=== PATIENT | male | born 1990 | race Caucasian/White ===

== ENCOUNTER 2018-01-27 11:11 | Inpatient (IN) | payer MEDICAID, OTHER ==
[2018-01-27 11:38] LABS: BEDSIDE GLUCOSE 123 MG/DL (70-105)
[2018-01-27 11:47] LABS: BASO % 0.1 % (0.0-1.0); HEMATOCRIT 43.1 % (42.0-52.0); IMMATURE GRANULOCYTE % 0.6 % (0-3.0); LYMPH # 0.4 10^3/uL (1.5-6.5); LYMPH % 2.1 % (24.0-44.0); MEAN CORPUSCULAR HEMOGLOBIN 30.2 pg (27.0-33.0); MEAN CORPUSCULAR HGB CONC 34.8 g/dl (32.0-36.5); MEAN CORPUSCULAR VOLUME 86.9 fl (80.0-96.0); MONO # 0.9 10^3/uL (0.0-0.8); MONO % 4.4 % (0.0-5.0); NEUTROPHILS % 92.8 % (36.0-66.0); PLATELET COUNT, AUTOMATED 283 10^3/uL (150-450); RED BLOOD COUNT 4.96 10^6/uL (4.30-6.10); RED CELL DISTRIBUTION WIDTH 12.7 % (11.5-14.5); WHITE BLOOD COUNT 20.5 10^3/uL (4.0-10.0)
[2018-01-27 12:23] LABS: ACETAMINOPHEN LEVEL < 2.0 UG/ML (10.0-30.0); ALBUMIN 4.1 GM/DL (3.2-5.2); ALBUMIN/GLOBULIN RATIO 1.17 (1.00-1.93); ALKALINE PHOSPHATASE 52 U/L (45-117); ALT/SGPT 54 U/L (12-78); ANION GAP 11 MEQ/L (8-16); AST/SGOT 70 U/L (7-37); BILIRUBIN,DIRECT 0.4 MG/DL (0.0-0.2); BILIRUBIN,TOTAL 1.7 MG/DL (0.2-1.0); BLOOD UREA NITROGEN 17 MG/DL (7-18); CALCIUM LEVEL 8.1 MG/DL (8.5-10.1); CARBON DIOXIDE LEVEL 24 MEQ/L (21-32); CHLORIDE LEVEL 100 MEQ/L (98-107); CPK CREATINE PHOSPHOKINASE 1175 U/L (39-308); CREATININE FOR GFR 1.18 MG/DL (0.70-1.30); ETHYL ALCOHOL (ETHANOL) 0.003 % (0.000-0.010); GLOMERULAR FILTRATION RATE > 60.0 (>60); GLUCOSE, FASTING 132 MG/DL (70-100); POTASSIUM SERUM 4.1 MEQ/L (3.5-5.1); SALICYLATE LEVEL < 1.7 MG/DL (5.0-30.0); SODIUM LEVEL 135 MEQ/L (136-145); THYROID STIMULATING HORMONE 0.547 uIU/ML (0.358-3.740); TOTAL PROTEIN 7.6 GM/DL (6.4-8.2)
[2018-01-27] MEDS: NS 1,000 ML IV ×2 (12:27→14:25)
[2018-01-27 14:52] LABS: AMPHETAMINES LEVEL URINE NEGATIVE (NEGATIVE); BARBITURATES URINE NEGATIVE (NEGATIVE); BENZODIAZEPINES URINE NEGATIVE (NEGATIVE); CANNABINOIDS URINE NEGATIVE (NEGATIVE); COCAINE METABOLITE URINE NEGATIVE (NEGATIVE); METHADONE URINE NEGATIVE (NEGATIVE); OPIATES URINE NEGATIVE (NEGATIVE); PHENCYCLIDINE URINE NEGATIVE (NEGATIVE)
[2018-01-27 15:14] LABS: KETONE, URINE AUTO RFX TRACE mg/dL (NEGATIVE); LEUKOCYTE ESTERASE UR AUTO RFX NEGATIVE (NEGATIVE); MUCUS, URINE RFX LARGE (NEGATIVE); NITRITE, URINE AUTO RFX NEGATIVE (NEGATIVE); RBC, URINE AUTO RFX 2 /HPF (0-3); SPECIFIC GRAVITY UR AUTO RFX 1.019 (1.002-1.035); SQUAM EPITHELIAL CELL UR AURFX 0 /HPF (0-6); WBC, URINE AUTO RFX 3 /HPF (0-3)
[2018-01-27 15:31] LABS: BASO % 0.1 % (0.0-1.0); EOS % 0.1 % (0.0-3.0); HEMATOCRIT 39.4 % (42.0-52.0); HEMOGLOBIN 13.5 g/dl (13.5-17.5); IMMATURE GRANULOCYTE % 0.4 % (0-3.0); LYMPH % 7.8 % (24.0-44.0); MEAN CORPUSCULAR HEMOGLOBIN 29.9 pg (27.0-33.0); MEAN CORPUSCULAR HGB CONC 34.3 g/dl (32.0-36.5); MEAN CORPUSCULAR VOLUME 87.2 fl (80.0-96.0); MONO # 0.9 10^3/uL (0.0-0.8); MONO % 6.8 % (0.0-5.0); NEUTROPHILS # 11.2 10^3/uL (1.8-7.7); NEUTROPHILS % 84.8 % (36.0-66.0); PLATELET COUNT, AUTOMATED 240 10^3/uL (150-450); RED BLOOD COUNT 4.52 10^6/uL (4.30-6.10); RED CELL DISTRIBUTION WIDTH 12.8 % (11.5-14.5); WHITE BLOOD COUNT 13.2 10^3/uL (4.0-10.0)
[2018-01-27 15:57] LABS: LACTIC ACID SEPSIS PROTOCOL 1.2 MMOL/L (0.4-2.0)
[2018-01-27 16:28] LABS: CPK CREATINE PHOSPHOKINASE 1393 U/L (39-308); MB/CK RELATIVE INDEX 1.45 (< OR =4); TROPONIN I 2.09 NG/ML (< 0.10)
[2018-01-27 16:49] LABS: TROPONIN I 0.87 NG/ML (< 0.10)
[2018-01-27 16:56] LABS: INR 1.08; PROTHROMBIN TIME 14.1 SECONDS (12.1-14.4)
[2018-01-27 16:57] LABS: PARTIAL THROMBOPLASTIN TIME 29.4 SECONDS (25.4-37.6)
[2018-01-27 17:01] LABS: OSMOLALITY SERUM 287 MOSM/KG (275-295)
[2018-01-27 17:04] LABS: AMMONIA 15 uMOL/L (<32)
[2018-01-27 17:12] LABS: C REACTIVE PROTEIN QUANTITATIV < 0.30 MG/DL (0.00-0.30)
[2018-01-27] MEDS: MULTIVITAMIN -ADULT INJECTION 10 ML, THIAMINE INJection 100 MG, FOLIC ACID 1 MG in NS 1... IV (18:07)
[2018-01-27] MEDS ORDERED: PROHANCE 279.3MG/ML 5ML VIAL (A9576) As Ordered (18:57)
[2018-01-27] MEDS ORDERED: PROHANCE 279.3MG/ML 15ML VIAL (A9576) As Ordered (18:58)
[2018-01-27 20:01] LABS: VENOUS HCO3 24.4 MEQ/L (23.0-27.0); VENOUS O2 SATURATION 99.2 % (60.0-80.0); VENOUS PARTIAL PRESSURE CO2 42.8 mmHg (38.0-50.0); VENOUS PARTIAL PRESSURE O2 144.4 mmHg (30.0-50.0); VENOUS PH 7.373 UNITS (7.330-7.430); VENOUS STANDARD HCO3 23.7 MEQ/L; VENOUS TOTAL CO2 25.7 MEQ/L (24.0-28.0)
[2018-01-27 20:59] LABS: CPK CREATINE PHOSPHOKINASE 2275 U/L (39-308); MB/CK RELATIVE INDEX 1.19 (< OR =4)
[2018-01-27] MEDS: ACETAMINOPHEN TAB 650MG DOSE (2X325MG) PO ×2 (21:45→22:15)
[2018-01-28] MEDS: NS 1,000 ML IV ×5 (00:25→23:10)
[2018-01-28 04:37] LABS: HEMOGLOBIN 12.2 g/dl (13.5-17.5); MEAN CORPUSCULAR HEMOGLOBIN 29.7 pg (27.0-33.0); MEAN CORPUSCULAR HGB CONC 33.9 g/dl (32.0-36.5); MEAN CORPUSCULAR VOLUME 87.6 fl (80.0-96.0); PLATELET COUNT, AUTOMATED 189 10^3/uL (150-450); RED BLOOD COUNT 4.11 10^6/uL (4.30-6.10); RED CELL DISTRIBUTION WIDTH 12.9 % (11.5-14.5); WHITE BLOOD COUNT 9.3 10^3/uL (4.0-10.0)
[2018-01-28 05:10] LABS: ALBUMIN 3.5 GM/DL (3.2-5.2); ALKALINE PHOSPHATASE 35 U/L (45-117); ALT/SGPT 47 U/L (12-78); ANION GAP 8 MEQ/L (8-16); AST/SGOT 93 U/L (7-37); BILIRUBIN,TOTAL 1.7 MG/DL (0.2-1.0); BLOOD UREA NITROGEN 9 MG/DL (7-18); CALCIUM LEVEL 8.3 MG/DL (8.5-10.1); CARBON DIOXIDE LEVEL 27 MEQ/L (21-32); CHLORIDE LEVEL 109 MEQ/L (98-107); CPK CREATINE PHOSPHOKINASE 2251 U/L (39-308); CREATININE FOR GFR 0.71 MG/DL (0.70-1.30); GLOMERULAR FILTRATION RATE > 60.0 (>60); GLUCOSE, FASTING 92 MG/DL (70-100); MAGNESIUM LEVEL 2.2 MG/DL (1.8-2.4); MB/CK RELATIVE INDEX 0.88 (< OR =4); POTASSIUM SERUM 3.7 MEQ/L (3.5-5.1); SODIUM LEVEL 144 MEQ/L (136-145); TROPONIN I 1.42 NG/ML (< 0.10)
[2018-01-28] MEDS: MULTIVITAMINS/MINERALS THERAP 1 TAB PO (10:10)
[2018-01-28] MEDS: THIAMINE 100 MG TAB PO (10:10)
[2018-01-28] MEDS: ENOXAPARIN 40 MG/0.4 ML SYRINGE (J1650) SC (10:10)
[2018-01-28] MEDS: FOLIC ACID 1 MG TAB PO (10:10)
[2018-01-28 10:51] LABS: CPK CREATINE PHOSPHOKINASE 2527 U/L (39-308); MB/CK RELATIVE INDEX 0.69 (< OR =4); TROPONIN I 0.93 NG/ML (< 0.10)
[2018-01-28] MEDS ORDERED: ISOVUE-370 76% 100ML VIAL (Q9967) As Ordered (12:11)
[2018-01-28] MEDS: ACETAMINOPHEN TAB 650MG DOSE (2X325MG) PO ×2 (14:38→23:00)
[2018-01-28 20:38] LABS: CPK CREATINE PHOSPHOKINASE 2095 U/L (39-308); MB/CK RELATIVE INDEX 0.38 (< OR =4); TROPONIN I 0.68 NG/ML (< 0.10)
[2018-01-29] MEDS: NS 1,000 ML IV ×5 (03:09→23:47)
[2018-01-29] MEDS: ACETAMINOPHEN TAB 650MG DOSE (2X325MG) PO (03:55)
[2018-01-29 05:26] LABS: HEMATOCRIT 34.5 % (42.0-52.0); HEMOGLOBIN 11.7 g/dl (13.5-17.5); MEAN CORPUSCULAR HEMOGLOBIN 30.1 pg (27.0-33.0); MEAN CORPUSCULAR HGB CONC 33.9 g/dl (32.0-36.5); MEAN CORPUSCULAR VOLUME 88.7 fl (80.0-96.0); PLATELET COUNT, AUTOMATED 201 10^3/uL (150-450); RED BLOOD COUNT 3.89 10^6/uL (4.30-6.10); RED CELL DISTRIBUTION WIDTH 12.8 % (11.5-14.5); WHITE BLOOD COUNT 6.9 10^3/uL (4.0-10.0)
[2018-01-29 06:05] LABS: ALBUMIN 3.5 GM/DL (3.2-5.2); ALBUMIN/GLOBULIN RATIO 1.52 (1.00-1.93); ALKALINE PHOSPHATASE 35 U/L (45-117); ALT/SGPT 56 U/L (12-78); ANION GAP 5 MEQ/L (8-16); AST/SGOT 98 U/L (7-37); BILIRUBIN,TOTAL 0.8 MG/DL (0.2-1.0); BLOOD UREA NITROGEN 5 MG/DL (7-18); CALCIUM LEVEL 8.3 MG/DL (8.5-10.1); CARBON DIOXIDE LEVEL 28 MEQ/L (21-32); CHLORIDE LEVEL 111 MEQ/L (98-107); CPK CREATINE PHOSPHOKINASE 1957 U/L (39-308); CREATININE FOR GFR 0.62 MG/DL (0.70-1.30); GLOMERULAR FILTRATION RATE > 60.0 (>60); GLUCOSE, FASTING 79 MG/DL (70-100); MB/CK RELATIVE INDEX 0.26 (< OR =4); POTASSIUM SERUM 3.7 MEQ/L (3.5-5.1); SODIUM LEVEL 144 MEQ/L (136-145); TOTAL PROTEIN 5.8 GM/DL (6.4-8.2); TROPONIN I 0.51 NG/ML (< 0.10)
[2018-01-29] MEDS: ENOXAPARIN 40 MG/0.4 ML SYRINGE (J1650) SC (09:00)
[2018-01-29] MEDS: FOLIC ACID 1 MG TAB PO (09:40)
[2018-01-29] MEDS: THIAMINE 100 MG TAB PO (09:41)
[2018-01-29] MEDS: MULTIVITAMINS/MINERALS THERAP 1 TAB PO (09:41)
[2018-01-29] MEDS: amLODIPine 5 MG TAB PO (09:41)
[2018-01-29 12:55] LABS: CPK CREATINE PHOSPHOKINASE 1704 U/L (39-308); MB/CK RELATIVE INDEX 0.22 (< OR =4); TROPONIN I 0.41 NG/ML (< 0.10)
[2018-01-29] MEDS: MAALOX 30 ML SUSP *UDC PO (22:58)
[2018-01-30] MEDS: ACETAMINOPHEN TAB 650MG DOSE (2X325MG) PO (02:22)
[2018-01-30] MEDS: NS 1,000 ML IV ×2 (04:39→09:09)
[2018-01-30 05:54] LABS: HEMATOCRIT 34.5 % (42.0-52.0); HEMOGLOBIN 11.6 g/dl (13.5-17.5); MEAN CORPUSCULAR HEMOGLOBIN 29.8 pg (27.0-33.0); MEAN CORPUSCULAR HGB CONC 33.6 g/dl (32.0-36.5); MEAN CORPUSCULAR VOLUME 88.7 fl (80.0-96.0); PLATELET COUNT, AUTOMATED 220 10^3/uL (150-450); RED BLOOD COUNT 3.89 10^6/uL (4.30-6.10); WHITE BLOOD COUNT 6.9 10^3/uL (4.0-10.0)
[2018-01-30 06:33] LABS: ALBUMIN/GLOBULIN RATIO 1.25 (1.00-1.93); ALKALINE PHOSPHATASE 33 U/L (45-117); ALT/SGPT 50 U/L (12-78); ANION GAP 8 MEQ/L (8-16); AST/SGOT 63 U/L (7-37); BILIRUBIN,TOTAL 0.5 MG/DL (0.2-1.0); BLOOD UREA NITROGEN 5 MG/DL (7-18); CALCIUM LEVEL 8.2 MG/DL (8.5-10.1); CARBON DIOXIDE LEVEL 25 MEQ/L (21-32); CHLORIDE LEVEL 112 MEQ/L (98-107); CPK CREATINE PHOSPHOKINASE 1020 U/L (39-308); CREATININE FOR GFR 0.63 MG/DL (0.70-1.30); GLOMERULAR FILTRATION RATE > 60.0 (>60); GLUCOSE, FASTING 104 MG/DL (70-100); MAGNESIUM LEVEL 1.9 MG/DL (1.8-2.4); POTASSIUM SERUM 3.9 MEQ/L (3.5-5.1); SODIUM LEVEL 145 MEQ/L (136-145); TOTAL PROTEIN 5.4 GM/DL (6.4-8.2)
[2018-01-30] MEDS: amLODIPine 5 MG TAB PO (09:00)
[2018-01-30] MEDS: ENOXAPARIN 40 MG/0.4 ML SYRINGE (J1650) SC (09:00)
[2018-01-30] MEDS: FOLIC ACID 1 MG TAB PO (09:03)
[2018-01-30] MEDS: MULTIVITAMINS/MINERALS THERAP 1 TAB PO (09:03)
[2018-01-30] MEDS: THIAMINE 100 MG TAB PO (09:03)
[2018-01-31 14:13] LABS: ACETAMINOPHEN None Detected ug/mL (10-30); ACETONE Negative % (0.000-0.010); AMITRIPTYLINE None Detected (Not Estab.); BUTALBITAL None Detected ug/mL (1-10); CHLORDIAZEPOXIDE None Detected ug/mL (0.1-0.9); DESIPRAMINE None Detected (Not Estab.); DIAZEPAM None Detected ug/mL (0.1-0.9); DOXEPIN None Detected (Not Estab.); ETHANOL Negative % (0.000-0.010); IMIPRAMINE None Detected (Not Estab.); ISOPROPANOL Negative % (0.000-0.010); METHANOL Negative % (0.000-0.010); NORCHLORDIAZEPOXIDE None Detected ug/mL (0.1-0.6); NORDIAZEPAM None Detected ug/mL (0.1-1.4); NORDOXEPIN None Detected (Not Estab.); NORTRIPTYLINE None Detected ng/mL (50-150); PENTOBARBITAL None Detected ug/mL (1-5); PHENOBARBITAL None Detected ug/mL (15-40); PHENYTOIN None Detected ug/mL (10.0-20.0); SALICYLATE None Detected ug/mL (30-250)
== END 2018-01-30 11:59 | disposition home or self-care (01) | DRG 812 ==
LOC: M ED 11:11 → M ED INP 17:12 → M PCU 20:35
DX: T43.8X1A Poisoning by other psychotropic drugs, accidental (unintentional), initial encounter (principal); G92 Toxic encephalopathy; M62.82 Rhabdomyolysis; R56.9 Unspecified convulsions; M54.2 Cervicalgia; D64.9 Anemia, unspecified; F43.21 Adjustment disorder with depressed mood; Z79.899 Other long term (current) drug therapy

== ENCOUNTER → 2018-10-31 | Outpatient (CLI) | payer OTHER ==
[~2018-10-31] MED LIST: BACL10TA2 PO; BACL1TAB9 PO; CELE40TA PO; DICL75TA PO; GABA600T4 PO; HYDR-3713 PO; NEUR300C PO; PERCOCET PO; TRAZ-252 PO; [UNRECOGNIZED DRUG - CODE] PO; lodine PO
--- NOTE | 2018-10-31 18:52 | REP ---
Clinical: Trauma. Technique: AP, lateral, bilateral oblique views right foot . Findings: The osseous structures and joint spaces are intact and normal. There is no evidence for acute fracture or dislocation. Surrounding soft tissues are unremarkable. No subcutaneous emphysema or radiodense foreign body. Impression: No acute fracture or dislocation. Electronically Signed by Elliot Yeung MD 10/31/2018 06:44 P
--- NOTE | 2018-10-31 18:52 | REP ---
Clinical: Trauma. Technique: AP, lateral, bilateral oblique views of the right ankle. Findings: Lateral swelling consistent with inversion injury. No acute fracture or dislocation identified. Ankle mortise intact. Impression: Soft-tissue swelling. No obvious acute fracture or dislocation. Electronically Signed by Elliot Yeung MD 10/31/2018 06:43 P
== END ==
LOC: M LRY 18:06
PROVIDERS: ATTEND Physician Assistant
DX: S99.921A Unspecified injury of right foot, initial encounter (principal); S99.911A Unspecified injury of right ankle, initial encounter; W18.30XA Fall on same level, unspecified, initial encounter; Y92.009 Unspecified place in unspecified non-institutional (private) residence as the place of occurrence of the external cause

== ENCOUNTER 2019-09-16 15:22 | Observation (INO) | payer OTHER ==
[~2019-09-16] VITALS: Ht 182.9 cm; Wt 92.3 kg
[~2019-09-16 15:22] MED LIST changes: +PANT20TA6 PO; +SILD100T PO
[2019-09-16] MEDS ORDERED: MAALOX 30 ML SUSP *UDC PO ONE (16:15)
[2019-09-16 16:39] LABS: BASO % 0.3 % (0.0-1.0); EOS % 0.2 % (0.0-3.0); HEMATOCRIT 39.4 % (42.0-52.0); HEMOGLOBIN 13.1 g/dl (13.5-17.5); LYMPH # 0.8 10^3/uL (1.5-5.0); LYMPH % 6.4 % (24.0-44.0); MEAN CORPUSCULAR HEMOGLOBIN 28.5 pg (27.0-33.0); MEAN CORPUSCULAR HGB CONC 33.2 g/dl (32.0-36.5); MEAN CORPUSCULAR VOLUME 85.8 fl (80.0-96.0); MONO # 0.5 10^3/uL (0.0-0.8); MONO % 4.5 % (0.0-5.0); NEUTROPHILS # 10.5 10^3/uL (1.5-8.5); NEUTROPHILS % 88.2 % (36.0-66.0); PLATELET COUNT, AUTOMATED 168 10^3/uL (150-450); RED BLOOD COUNT 4.59 10^6/uL (4.30-6.10); WHITE BLOOD COUNT 11.9 10^3/uL (4.0-10.0)
[2019-09-16 17:15] LABS: ALBUMIN 3.1 GM/DL (3.2-5.2); ALT/SGPT 20 U/L (12-78); BILIRUBIN,DIRECT 0.2 MG/DL (0.0-0.2); BILIRUBIN,TOTAL 2.8 MG/DL (0.2-1.0); BLOOD UREA NITROGEN 13 MG/DL (7-18); CALCIUM LEVEL 8.3 MG/DL (8.5-10.1); CARBON DIOXIDE LEVEL 28 MEQ/L (21-32); CHLORIDE LEVEL 104 MEQ/L (98-107); CREATININE FOR GFR 0.91 MG/DL (0.70-1.30); GLOMERULAR FILTRATION RATE > 60.0 (>60); GLUCOSE, FASTING 90 MG/DL (70-100); POTASSIUM SERUM 3.7 MEQ/L (3.5-5.1); SODIUM LEVEL 137 MEQ/L (136-145)
--- NOTE | 2019-09-16 17:43 | REP ---
CHEST, SINGLE VIEW: Single view of the chest is performed. Comparison made with several prior studies. There is diffuse dense infiltrate throughout the right lung. There is no definite infiltrate in the left lung. Heart is not definitely enlarged. IMPRESSION: Diffuse dense infiltrate right lung. Electronically Signed by Emanuel Gupta MD 09/16/2019 07:36 P
[2019-09-16 18:53] VITALS: BP 143/80
--- NOTE | 2019-09-16 18:54 | HPEPDOC ---
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 The patient reports that he was sleeping very early this morning and his woke him up letting him know that he was actively vomiting and choking. The patient reports he was covered in vomit and he was also vomiting blood. He is unable to quantify how much blood, but he states that it was "not too much." He also reports he is unable to take deep breaths and has begun shallow breathing since that episode. He is coughing and producing white-alaina haynes sputum. His chest pain is about 6 out of 10. He does have a history of gastroesophageal reflux disease. He has not been ill recently, no fevers, no chills, no sick contacts. In the ED, he is found to be saturating 91% on room air, but tachycardic at 112. PAST MEDICAL HISTORY: 1. Chronic pain 2. History of prescription drug abuse (Vicodin, Gabapentin) 3. 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 Both his parents are and he states he has 23 siblings or half siblings. He is not aware of any family history of lung disease and he does not know how his parents . ALLERGIES: Please see below. REVIEW OF SYSTEMS: CONSTITUTIONAL: Denies weight loss, weight gain, fevers, chills, or night sweats EYES: Denies visual changes, double vision, blurry vision, floaters, or feeling like a curtain pulled down. ENT: Denies runny nose, epistaxis, sinus pain, tinnitus, sore throat, or odynophasia CARDIOVASCULAR: Denies chest pain, shortness of breath, paroxysmal nocturnal dyspnea, orthopnea, edema, or palpitations. RESPIRATORY: Denies cough, sputum production, wheezes, hemoptysis, or shortness of breath GASTROINTESTINAL: Reports chest pain similar to reflux symptoms, pain is 6 out of 10 in severity GENITOURINARY: Denies hematuria, polyuria, dysuria, hesitancy, or dribbling MSK: Denies joint swelling, decreased range of motion, crepitus, or new arthritis INTEGUMENTARY: Denies pruritus, rashes, or lesions NEUROLOGY: Denies any changes to sight/smell/hearing/taste, seizures, faint, headaches, paresthesias, anesthesias PSYCHIATRIC: Denies depression, anxiety, paranoia, anhedonia, or episodes of fortino ENDOCRINE: Denies diarrhea, increased appetite, tremor, palpitations, constipation, dry skin, polydipsia, polyuria, polyphagia HEMATOLOGIC: Denies any anemia, purpura, or petechiae LYMPHATIC: Denies any new lumps or bumps anywhere HOME MEDICATIONS: Please see below. PHYSICAL EXAMINATION: VITAL SIGNS: Please see below. GENERAL APPEARANCE: Laying in bed, appears stated age, appears uncomfortable, very shallow breathing, can speak in 3-4 word sentences, intermittent coughing, calm, cooperative HEENT: EOMI, PERRLA, neck is supple with no thyromegaly or lymphadenopathy RESPIRATORY: Lungs are clear to auscultation bilaterally with no adventitious breath sounds appreciated CARDIOVASCULAR: no JVD, somewhat tachycardic, no murmurs/rubs/gallops, normal S1 and S2 ABDOMEN: +BS, soft, nontender to palpation in all four quadrants, no masses/organomegaly EXTREMITIES: no clubbing, cyanosis or edema noted NEUROLOGICAL: CN 2-12 intact, No obvious focal deficits PSYCHIATRIC: normal mood/affect Skin: No rashes or ulcers appreciated, warm and well-perfused LN: No significant cervical or inguinal lymphadenopathy LABORATORY DATA: See below. IMAGING: CHEST, SINGLE VIEW: Single view of the chest is performed. Comparison made with several prior studies. There is diffuse dense infiltrate throughout the right lung. There is no defi nite infiltrate in the left lung. Heart is not definitely enlarged. IMPRESSION: Diffuse dense infiltrate right lung. MICROBIOLOGY: Please see below. ASSESSMENT: This is a 78-year-old male with history of chronic pain and history of narcotic abuse who presents after episode of emesis at home with questionable hematemesis found to have what is most likely aspiration pneumonitis versus aspiration pneumonia. He will be admitted for oxygen monitoring, antibiotics and supplemental oxygen as needed. PLAN: 1. Possible aspiration pneumonitis: -Chest XR is very concerning for dense diffuse infiltrate in R lung -Empiric Unasyn -Xoponex ordered and scheduled every 4 hours -Elevate the head of bed 45 -IV Protonix 40 mg daily -Procalcitonin and CRP ordered -s/p GI cocktail in ED -Continuous pulse oximetry 2. Chronic pain: -Will hold potentially sedating home meds: Baclofen, Trazodone QHS -Caution for over-sedation 3. GERD: -IV Protonix 40mg Daily 4. Mood disorder: -Celexa DVT ppx: TEDs/SCDs Attending attestation: I evaluated and examined the patient in person; I discussed the care with Resident in detail and agree with the plan above. Vital Signs Vital Signs Date Time Temp Pulse Resp B/P (MAP) Pulse Ox O2 Delivery O2 Flow Rate FiO2 09/16/19 16:00 09/16/19 16:00 Nasal Cannula 2.0 09/16/19 15:23 99.3 112 36 91 Laboratory Data Labs 24H Laboratory Tests 2 09/16/19 16:21: Immature Granulocyte % (Auto) 0.4, Neutrophils (%) (Auto) 88.2H, Lymphocytes (%) (Auto) 6.4L, Monocytes (%) (Auto) 4.5, Eosinophils (%) (Auto) 0.2, Basophils (%) (Auto) 0.3, Neutrophils # (Auto) 10.5H, Lymphocytes # (Auto) 0.8L, Monocytes # (Auto) 0.5, Eosinophils # (Auto) 0.0, Basophils # (Auto) 0.0, Nucleated Red Blood Cells % (auto) 0.0, Anion Gap 5L, Glomerular Filtration Rate > 60.0, Calcium Level 8.3L, Total Bilirubin 2.8H, Direct Bilirubin 0.2, Aspartate Amino Transf (AST/SGOT) 21, Alanine Aminotransferase (ALT/SGPT) 20, Alkaline Phosphatase 54, Total Protein 6.0L, Albumin 3.1L, Albumin/Globulin Ratio 1.1 CBC/BMP Laboratory Tests 09/16/19 16:21 Home Medications Scheduled Gabapentin (Gabapentin) 600 Mg Tab, 600 MG PO TID Pantoprazole Sodium (Pantoprazole Sodium) 20 Mg Tablet.dr, 20 MG PO DAILY Scheduled PRN Baclofen (Baclofen) 20 Mg Tab, 20 MG PO QHS PRN for SPASMS Hydrocodone/Acetaminophen (Hydrocodone-Acetamin 5-325 mg) 1 Tab Tab, 1 TAB PO Q6H PRN for PAIN Sildenafil Citrate (Sildenafil Citrate) 100 Mg Tablet, 100 MG PO PRN PRN for ERECTILE DYSFUNCTION Trazodone HCl (Trazodone HCl) 50 Mg Tab, 50 MG PO QHS PRN for SLEEP Allergies Coded Allergies: lidocaine (Verified Allergy, Mild, CREAM=RASH, 01/06/19) A-FIB/CHADSVASC A-FIB History Current/History of A-Fib/PAF?: No SJ HUNT MD September 16, 2019 18:02 THERESA HUDSON MD September 23, 2019 21:35
[2019-09-16] MEDS: AMPICILLIN SOD/SULBACTAM SOD 1.5 GM in D5W MINI-BAG PLUS 50 ML IV SCH (20:22)
[2019-09-16 20:50] LABS: AMPHETAMINES LEVEL URINE NEGATIVE (NEGATIVE); BARBITURATES URINE NEGATIVE (NEGATIVE); BENZODIAZEPINES URINE NEGATIVE (NEGATIVE); CANNABINOIDS URINE NEGATIVE (NEGATIVE); COCAINE METABOLITE URINE NEGATIVE (NEGATIVE); METHADONE URINE NEGATIVE (NEGATIVE); OPIATES URINE POSITIVE (NEGATIVE); PHENCYCLIDINE URINE NEGATIVE (NEGATIVE)
[2019-09-16] MEDS: NORCO, ANEXSIA 5/325MG TABLET (HYDROcodone/ACETAMINOPHEN) PO PRN (21:20)
[2019-09-16 22:00] VITALS: BP 141/81
[2019-09-16] MEDS: LEVALBUTEROL HFA 45MCG/ACT 15 GM INHALER INH SCH ×2 (23:27→23:44)
[2019-09-17 02:00] VITALS: BP 101/63
[2019-09-17] MEDS: AMPICILLIN SOD/SULBACTAM SOD 1.5 GM in D5W MINI-BAG PLUS 50 ML IV SCH ×3 (02:14→13:25)
[2019-09-17] MEDS: NORCO, ANEXSIA 5/325MG TABLET (HYDROcodone/ACETAMINOPHEN) PO PRN ×2 (04:02→11:47)
[2019-09-17] MEDS: LEVALBUTEROL HFA 45MCG/ACT 15 GM INHALER INH SCH ×3 (04:25→12:00)
[2019-09-17 06:00] VITALS: BP 124/69
[2019-09-17 06:32] LABS: HEMATOCRIT 36.5 % (42.0-52.0); HEMOGLOBIN 12.6 g/dl (13.5-17.5); MEAN CORPUSCULAR HEMOGLOBIN 29.6 pg (27.0-33.0); MEAN CORPUSCULAR HGB CONC 34.5 g/dl (32.0-36.5); MEAN CORPUSCULAR VOLUME 85.9 fl (80.0-96.0); PLATELET COUNT, AUTOMATED 155 10^3/uL (150-450); RED BLOOD COUNT 4.25 10^6/uL (4.30-6.10); WHITE BLOOD COUNT 9.7 10^3/uL (4.0-10.0)
[2019-09-17 07:03] LABS: ALBUMIN 2.8 GM/DL (3.2-5.2); ALT/SGPT 18 U/L (12-78); BILIRUBIN,TOTAL 2.4 MG/DL (0.2-1.0); BLOOD UREA NITROGEN 8 MG/DL (7-18); CARBON DIOXIDE LEVEL 28 MEQ/L (21-32); CHLORIDE LEVEL 105 MEQ/L (98-107); CREATININE FOR GFR 0.74 MG/DL (0.70-1.30); GLOMERULAR FILTRATION RATE > 60.0 (>60); GLUCOSE, FASTING 91 MG/DL (70-100); MAGNESIUM LEVEL 1.9 MG/DL (1.8-2.4); POTASSIUM SERUM 3.6 MEQ/L (3.5-5.1); SODIUM LEVEL 139 MEQ/L (136-145); TOTAL PROTEIN 5.8 GM/DL (6.4-8.2)
--- NOTE | 2019-09-17 07:13 | ECGEPIP ---
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
[2019-09-17 08:25] VITALS: O2SAT 96
[2019-09-17] MEDS ORDERED: POTASSIUM CHLORIDE 10 MEQ SR TABLET PO ONE (08:45)
[2019-09-17] MEDS ORDERED: PANTOPRAZOLE 40MG VIAL (C9113 PER 1) IV SCH (09:00)
[2019-09-17] MEDS ORDERED: PANTOPRAZOLE 20 MG TAB PO SCH (09:00)
[2019-09-17 10:00] VITALS: BP 137/85
[2019-09-17 14:00] VITALS: BP 141/87
--- NOTE | 2019-09-17 15:37 | DS.PDOC ---
Discharge Summary General Date of Admission September 16, 2019 at 15:23 Date of Discharge 09/17/19 Attending Physician: THERESA HUDSON MD Discharge Summary PROCEDURES PERFORMED DURING STAY: None. ADMITTING DIAGNOSES: 1. Aspiration pneumonitis. DISCHARGE DIAGNOSES: 1. Aspiration pneumonitis. COMPLICATIONS/CHIEF COMPLAINT: Aspiration pneumonitis. HISTORY OF PRESENT ILLNESS: 28-year-old male with past medical history of GERD was admitted for aspiration pneumonitis. Patient vomited a large amount in his sleep with significant aspiration. He was found to have hypoxemia and signific ant right-sided infiltrate on chest x-ray, was admitted for observation. Patient required supplemental oxygen for a short period of time. Today, patient is on room air, comfortable, significant improvement in symptoms, ambulated without significant drop in O2 saturation. Patient will be discharged with close follow- up, advised to return to the emergency room if dyspnea/cough worsen/recur. Patient is hemodynamically stable for discharge at this time. HOSPITAL COURSE: As above. DISCHARGE MEDICATIONS: Please see below. ALLERGIES: Please see below. PHYSICAL EXAMINATION: VITAL SIGNS: Please see below. GENERAL: No distress HEENT: Normocephalic, atraumatic, moist mucous membranes NECK: Supple CARDIOVASCULAR EXAMINATION: S1, S2, no murmurs RESPIRATORY EXAMINATION: Scattered rhonchi, no wheezing ABDOMINAL EXAMINATION: Soft, nontender, nondistended, positive bowel sounds EXTREMITIES: Range of motion intact SKIN: No rash NEUROLOGICAL EXAMINATION: Alert and oriented 3, no focal deficits PSYCHIATRIC EXAMINATION: Calm and cooperative LABORATORY DATA: Please see below. IMAGING: Chest x-ray showing bilateral infiltrates, right greater than left. PROGNOSIS: Good ACTIVITY: As tolerated. DIET: Regular DISCHARGE PLAN: Follow with PCP in 1-2 weeks DISPOSITION: 01 Home, Self-Care. DISCHARGE INSTRUCTIONS: 1. As above. DISCHARGE CONDITION: Stable. TIME SPENT ON DISCHARGE: Greater than 26 minutes. Vital Signs/I&Os Vital Signs Date Time Temp Pulse Resp B/P (MAP) Pulse Ox O2 Delivery O2 Flow Rate FiO2 09/17/19 14:00 98.7 98 20 141/87 (105) 97 Room Air 09/17/19 06:00 3.0 I&O- Last 24 Hours up to 6 AM 09/17/19 05:59 Intake Total 0 ml Output Total 800 ml Balance -800 ml Laboratory Data Labs 24H Laboratory Tests 2 09/16/19 16:21: Immature Granulocyte % (Auto) 0.4, Neutrophils (%) (Auto) 88.2H, Lymphocytes (%) (Auto) 6.4L, Monocytes (%) (Auto) 4.5, Eosinophils (%) (Auto) 0.2, Basophils (%) (Auto) 0.3, Neutrophils # (Auto) 10.5H, Lymphocytes # (Auto) 0.8L, Monocytes # (Auto) 0.5, Eosinophils # (Auto) 0.0, Basophils # (Auto) 0.0, Nucleated Red Blood Cells % (auto) 0.0, Anion Gap 5L, Glomerular Filtration Rate > 60.0, Calci um Level 8.3L, Total Bilirubin 2.8H, Direct Bilirubin 0.2, Aspartate Amino Transf (AST/SGOT) 21, Alanine Aminotransferase (ALT/SGPT) 20, Alkaline Phosphatase 54, Total Protein 6.0L, Albumin 3.1L, Albumin/Globulin Ratio 1.1 09/16/19 20:11: Urine Opiates Screen POSITIVEH, Urine Methadone Screen NEGATIVE, Urine Barbiturates Screen NEGATIVE, Urine Phencyclidine Screen NEGATIVE, Urine Amphetamines Screen NEGATIVE, Urine Benzodiazepines Screen NEGATIVE, Urine Cocaine Metabolite Screen NEGATIVE, Urine Cannabinoids Screen NEGATIVE 09/17/19 06:17: Nucleated Red Blood Cells % (auto) 0.0, Anion Gap 6L, Glomerular Filtration Rate > 60.0, Calcium Level 8.0L, Total Bilirubin 2.4H, Aspartate Amino Transf (AST/SGOT) 16, Alanine Aminotransferase (ALT/SGPT) 18, Alkaline Phosphatase 48, Total Protein 5.8L, Albumin 2.8L, Albumin/Globulin Ratio 0.9, Magnesium Level 1 .9, C-Reactive Protein, Quantitative 10.60H CBC/BMP Laboratory Tests 09/16/19 16:21 09/17/19 06:17 Discharge Medications Scheduled Gabapentin (Gabapentin) 600 Mg Tab, 600 MG PO TID, (Reported) Pantoprazole Sodium (Pantoprazole Sodium) 20 Mg Tablet.dr, 20 MG PO DAILY, (Reported) Scheduled PRN Baclofen (Baclofen) 20 Mg Tab, 20 MG PO QHS PRN for SPASMS, (Reported) Hydrocodone/Acetaminophen (Hydrocodone-Acetamin 5-325 mg) 1 Tab Tab, 1 TAB PO Q6H PRN for PAIN, (Reported) Sildenafil Citrate (Sildenafil Citrate) 100 Mg Tablet, 100 MG PO PRN PRN for ERECTILE DYSFUNCTION, (Reported) Trazodone HCl (Trazodone HCl) 50 Mg Tab, 50 MG PO QHS PRN for SLEEP, (Reported) Allergies Coded Allergies: lidocaine (Verified Allergy, Mild, CREAM=RASH, 01/06/19) THERESA HUDSON MD September 17, 2019 15:37
== END 2019-09-17 14:56 | disposition home or self-care (01) ==
LOC: M ED 15:22 → M ED INP 15:23 → ENRESERV 18:37 → M MSPAV 18:57
PROVIDERS: ADMIT Internal Medicine; ATTEND Internal Medicine
DX: J69.0 Pneumonitis due to inhalation of food and vomit (principal); R09.02 Hypoxemia; K21.9 Gastro-esophageal reflux disease without esophagitis; G89.29 Other chronic pain; Z79.899 Other long term (current) drug therapy; Z87.891 Personal history of nicotine dependence; Z88.6 Allergy status to analgesic agent
CPT/HCPCS: 36415; 71045; 80048; 80053; 80076; 80307; 83735; 84145; 85025; 85027; 86140; 93005; 93041; 94640; 94760; 96374; 96376; 99285; G0378

== ENCOUNTER 2020-01-30 02:48 | Inpatient (IN) | payer OTHER ==
[~2020-01-30] VITALS: Ht 182.9 cm; Wt 88.2 kg
[2020-01-30] MEDS ORDERED: NS 1,000 ML IV ONE ×5 (03:00→08:30)
[2020-01-30] MEDS ORDERED: NALOXONE 2MG/2ML SYRINGE (J2310 PER 1MG) As Ordered ONE (03:17)
[2020-01-30] MEDS ORDERED: ISOVUE-370 76% 100ML VIAL As Ordered ONE (03:24)
[2020-01-30 03:29] LABS: BASO % 0.2 % (0.0-1.0); HEMATOCRIT 38.1 % (42.0-52.0); HEMOGLOBIN 11.6 g/dl (13.5-17.5); LYMPH # 0.6 10^3/uL (1.5-5.0); LYMPH % 2.8 % (24.0-44.0); MEAN CORPUSCULAR HEMOGLOBIN 27.2 pg (27.0-33.0); MEAN CORPUSCULAR HGB CONC 30.4 g/dl (32.0-36.5); MEAN CORPUSCULAR VOLUME 89.2 fl (80.0-96.0); MONO # 1.5 10^3/uL (0.0-0.8); MONO % 7.2 % (0.0-5.0); NEUTROPHILS # 18.5 10^3/uL (1.5-8.5); NEUTROPHILS % 89.2 % (36.0-66.0); PLATELET COUNT, AUTOMATED 250 10^3/uL (150-450); RED BLOOD COUNT 4.27 10^6/uL (4.30-6.10); WHITE BLOOD COUNT 20.8 10^3/uL (4.0-10.0)
--- NOTE | 2020-01-30 03:43 | REPVR ---
PROCEDURE INFORMATION: Exam: XR Right Femur Exam date and time: 01/30/2020 3:38 AM Age: 29 years old Clinical indication: Pain; Hip; Right; Additional info: Right hip pain TECHNIQUE: Imaging protocol: XR Right femur. Views: 2 views. COMPARISON: No relevant prior studies available. FINDINGS: Bones/joints: The proximal right femur is not included. No fractures in the mid and distal femur. Soft tissues: Unremarkable. IMPRESSION: Negative mid and distal right femur. Electronically signed by: Prashanth Santana On 01/30/2020 03:43:39 AM
--- NOTE | 2020-01-30 03:44 | REPVR ---
PROCEDURE INFORMATION: Exam: XR Right Hip with Pelvis when Performed Exam date and time: 01/30/2020 3:38 AM Age: 29 years old Clinical indication: Hip pain; Right hip; Additional info: Right hip pain TECHNIQUE: Imaging protocol: XR Right hip with pelvis when performed. Views: 2 or 3 views. COMPARISON: No relevant prior studies available. FINDINGS: Bones/joints: Unremarkable. No acute fracture. Soft tissues: Unremarkable. IMPRESSION: Negative right hip. Electronically signed by: Prashanth Santana On 01/30/2020 03:44:21 AM
--- NOTE | 2020-01-30 03:45 | REPVR ---
PROCEDURE INFORMATION: Exam: XR Chest, 1 View Exam date and time: 01/30/2020 3:17 AM Age: 29 years old Clinical indication: Other: Overdose; Additional info: Drug overdose TECHNIQUE: Imaging protocol: XR of the chest Views: 1 view. COMPARISON: CA PORTABLE CHEST X-RAY 09/16/2019 3:58 PM FINDINGS: Lungs: No focal infiltrates. Clearing of bilateral pulmonary infiltrates since the prior study. Pleural space: Unremarkable. No pleural effusion. No pneumothorax. Heart/Mediastinum: The heart and mediastinum are within normal limits considering AP and lordotic projection. Bones/joints: Unremarkable. IMPRESSION: Negative lordotic chest with resolution of bilateral pulmonary infiltrates since 09/16/2019. Electronically signed by: Prashanth Santana On 01/30/2020 03:45:09 AM
--- NOTE | 2020-01-30 03:45 | REPVR ---
PROCEDURE INFORMATION: Exam: XR Pelvis Exam date and time: 01/30/2020 3:38 AM Age: 29 years old Clinical indication: Hip pain; Right hip; Additional info: Right hip pain TECHNIQUE: Imaging protocol: XR pelvis. Views: 1 or 2 view. COMPARISON: No relevant prior studies available. FINDINGS: Bones/joints: Unremarkable. No acute fracture. Soft tissues: Unremarkable. IMPRESSION: Negative pelvis. Electronically signed by: Prashanth Santana On 01/30/2020 03:45:41 AM
--- NOTE | 2020-01-30 04:01 | REPVR ---
PROCEDURE INFORMATION: Exam: CT Head Without Contrast Exam date and time: 01/30/2020 2:57 AM Age: 29 years old Clinical indication: Altered mental status/memory loss; Confusion or disorientation; Additional info: Drug overdose TECHNIQUE: Imaging protocol: Computed tomography of the head without contrast. Radiation optimization: All CT scans at this facility use at least one of these dose optimization techniques: automated exposure control; mA and/or kV adjustment per patient size (includes targeted exams where dose is matched to clinical indication); or iterative reconstruction. COMPARISON: MRA BRAIN W/O CONTRAST 01/27/2018 6:33 PM FINDINGS: Brain: Extension of cerebellar tonsils into the foramen magnum suggesting a Chiari 1 malformation. The haynes and white matter is within normal limits. Cerebral ventricles: No ventriculomegaly. Bones/joints: Unremarkable. No acute fracture. Paranasal sinuses: Visualized sinuses are unremarkable. No fluid levels. Mastoid air cells: Visualized mastoid air cells are well aerated. Soft tissues: Unremarkable. IMPRESSION: 1. 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 2. Otherwise negative noncontrast head CT. Electronically signed by: Prashanth Santana On 01/30/2020 04:01:00 AM
--- NOTE | 2020-01-30 04:04 | REPVR ---
PROCEDURE INFORMATION: Exam: CT Cervical Spine Without Contrast Exam date and time: 01/30/2020 3:09 AM Age: 29 years old Clinical indication: Neck pain; Additional info: Cpr, SOB TECHNIQUE: Imaging protocol: Computed tomography images of the cervical spine without contrast. Radiation optimization: All CT scans at this facility use at least one of these dose optimization techniques: automated exposure control; mA and/or kV adjustment per patient size (includes targeted exams where dose is matched to clinical indication); or iterative reconstruction. COMPARISON: No relevant prior studies available. FINDINGS: Vertebrae: No acute fracture. Normal alignment. Discs/Spinal canal/Neural foramina: No significant disc protrusion. No severe spinal canal stenosis. No significant neural foraminal narrowing. Soft tissues: Unremarkable. Lungs: Lung apices are normal. IMPRESSION: Negative CT cervical spine. No fracture or subluxation is evident and no spinal or foraminal stenosis. Electronically signed by: Prashanth Santana On 01/30/2020 04:03:45 AM
[2020-01-30 04:10] LABS: ACETAMINOPHEN LEVEL < 2.0 UG/ML (10.0-30.0); ALBUMIN 3.9 GM/DL (3.2-5.2); ALT/SGPT 40 U/L (12-78); BILIRUBIN,DIRECT 0.4 MG/DL (0.0-0.2); BILIRUBIN,TOTAL 1.3 MG/DL (0.2-1.0); BLOOD UREA NITROGEN 16 MG/DL (7-18); CALCIUM LEVEL 8.5 MG/DL (8.5-10.1); CARBON DIOXIDE LEVEL 22 MEQ/L (21-32); CHLORIDE LEVEL 105 MEQ/L (98-107); CPK CREATINE PHOSPHOKINASE 351 U/L (39-308); CREATININE FOR GFR 1.88 MG/DL (0.70-1.30); ETHYL ALCOHOL (ETHANOL) < 0.003 % (0.000-0.010); GLOMERULAR FILTRATION RATE 45.7 (>60); GLUCOSE, FASTING 129 MG/DL (70-100); POTASSIUM SERUM 4.6 MEQ/L (3.5-5.1); SALICYLATE LEVEL < 1.7 MG/DL (5.0-30.0); SODIUM LEVEL 142 MEQ/L (136-145); THYROID STIMULATING HORMONE 0.672 uIU/ML (0.358-3.740); TOTAL PROTEIN 7.5 GM/DL (6.4-8.2)
--- NOTE | 2020-01-30 04:10 | REPVR ---
PROCEDURE INFORMATION: Exam: CT Angiography Chest With Contrast Exam date and time: 01/30/2020 3:09 AM Age: 29 years old Clinical indication: Chest pain; Type not specified; Additional info: Cpr, SOB TECHNIQUE: Imaging protocol: Computed tomographic angiography of the chest with intravenous contrast. 3D rendering (Not supervised by radiologist): MIP and/or 3D reconstructed images were created by the technologist. Radiation optimization: All CT scans at this facility use at least one of these dose optimization techniques: automated exposure control; mA and/or kV adjustment per patient size (includes targeted exams where dose is matched to clinical indication); or iterative reconstruction. Contrast material: ISO; Contrast volume: 100 ml; Contrast route: INTRAVENOUS (IV); COMPARISON: CT Chest with contrast 01/06/2019 5:20 PM FINDINGS: Pulmonary arteries: The main pulmonary artery measures 29 mm. No pulmonary embolism is identified. Aorta: The ascending thoracic aorta measures 26 mm. Lungs: Bilateral pulmonary infiltrates, right greater than left with considerable improvement since a prior study and are now greatest in the right lower lobe. Pleural space: Unremarkable. No pneumothorax. No pleural effusion. Heart: Unremarkable. No cardiomegaly. No pericardial effusion. Mediastinal space: There is soft tissue conforming to the anterior mediastinum consistent with residual thymic tissue. Lymph nodes: Unremarkable. No enlarged lymph nodes. Bones/joints: Slightly decreased height of a few lower thoracic segments which appear to be chronic. No acute fracture. Soft tissues: Unremarkable. IMPRESSION: 1. Bilateral pulmonary infiltrates, right greater than left which are greatest in the right lower lobe consistent with pneumonia with considerable improvement overall since 01/06/2019. 2. Otherwise negative CTA chest. No pulmonary embolism is identified. Electronically signed by: Prashanth Santana On 01/30/2020 04:09:48 AM
--- NOTE | 2020-01-30 04:14 | REPVR ---
PROCEDURE INFORMATION: Exam: CT Abdomen And Pelvis With Contrast Exam date and time: 01/30/2020 3:09 AM Age: 29 years old Clinical indication: Other: Od; Additional info: Cpr, SOB TECHNIQUE: Imaging protocol: Computed tomography of the abdomen and pelvis with intravenous contrast. Radiation optimization: All CT scans at this facility use at least one of these dose optimization techniques: automated exposure control; mA and/or kV adjustment per patient size (includes targeted exams where dose is matched to clinical indication); or iterative reconstruction. Contrast material: ISO; Contrast volume: 100 ml; Contrast route: INTRAVENOUS (IV); COMPARISON: CR Pelvis Ap ONLY 01/30/2020 3:13 AM FINDINGS: Lungs: Right lower lobe pulmonary infiltrates. Liver: Normal. No mass. Gallbladder and bile ducts: Normal. No calcified stones. No ductal dilation. Pancreas: Normal. No ductal dilation. Spleen: Normal. No splenomegaly. Adrenals: Normal. No mass. Kidneys and ureters: Probable left renal cyst measuring 12 mm. No follow-up imaging is recommended. Stomach and bowel: Unremarkable. No obstruction. No mucosal thickening. Appendix: A normal appendix is seen. Intraperitoneal space: Unremarkable. No free air. No significant fluid collection. 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 Lymph nodes: Unremarkable. No enlarged lymph nodes. Urinary bladder: Unremarkable as visualized. Reproductive: Unremarkable as visualized. Bones/joints: Unremarkable. No acute fracture. Soft tissues: Unremarkable. IMPRESSION: 1. Right lower lobe pulmonary infiltrates consistent with pneumonia. 2. Duplication of the IVC. 3. Otherwise negative CT abdomen/pelvis. Electronically signed by: Prashanth Santana On 01/30/2020 04:14:04 AM
[2020-01-30] MEDS ORDERED: cefTRIAXone SOD 1 GM in D5W MINI-BAG PLUS 50 ML IV ONE (04:15)
[2020-01-30] MEDS ORDERED: DOXYCYCLINE HYCLATE 100 MG in D5W MINI-BAG PLUS 100 ML IV ONE (04:15)
[2020-01-30 04:42] LABS: MB/CK RELATIVE INDEX 1.99 (< OR =4); TROPONIN I 0.12 NG/ML (< 0.10)
[2020-01-30] MEDS ORDERED: ACETAMINOPHEN TAB 650MG DOSE (2X325MG) PO PRN (04:45)
[2020-01-30] MEDS ORDERED: NS 1,000 ML IV SCH (04:45)
[2020-01-30] MEDS ORDERED: MOM 30ML SUSPENSION UDC PO PRN (04:45)
[2020-01-30] MEDS ORDERED: MAALOX 30 ML SUSP *UDC PO PRN (04:45)
--- NOTE | 2020-01-30 05:13 | HPEPDOC ---
[facility] Medical History & Physical Date of Admission Jan 30, 2020 Date of Service: Jan 30, 2020 Primary Care Physician: NIRMAL TEJEDA MD Attending Physician: FATOU GALLARDO MD History and Physical TIME OF SERVICE: 425AM CHIEF COMPLAINT: AMS HISTORY OF PRESENT ILLNESS: This 29 yr old has a hx of hypoxic arrest after snorting Vicodin and gabapentin in the past. Today his found him on the ground in an unresponsive state; he was not breathing and didn't have a pulse therefore CPR was started. Shortly after First responders arrived the patient was given Narcan and vomited. His initial SPO2 was in the 70s and improved to 92% w O2. The patient only admitted to taking Vicodin prior yesterday morning prior to work and Vicodin in the evening. He denies taking additional meds or additional doses of his Vicodin and reports that after taking his meds the next thing he remembers is his doing CPR. He denies feeling unwell recently but noted that he has new onset of heari ng loss and new onset of right lower back pain and right leg weakness. REVIEW OF SYSTEMS: 12 point review of systems negative except as listed in HPI PAST MEDICAL/ SURGICAL HISTORY: Chronic Pain "Mood disorder" Depression SOCIAL HISTORY: Chews tobacco Drinks beer 2x a week Doesn't use alcohol FAMILY HISTORY: Mother has DM, CKD, HTN, OA, CVA and CAD ALLERGIES: Please see below. HOME MEDICATIONS: Please see below. PHYSICAL EXAMINATION: Vital Signs Date Time Temp Pulse Resp B/P (MAP) Pulse Ox O2 Delivery O2 Flow Rate FiO2 01/30/20 02:59 97.3 01/30/20 03:00 76/40 (52) 01/30/20 03:03 110 18 97 Room Air GEN: well-nourished / well developed/ NAD INTEGUMENT: not flushed/ not jaundice HEENT: NCAT / lips acyanotic /mucus membranes dry / EOMI / NC in place CVS: RRR/NMRG/ no lower extremity edema LUNGS: able to speak full sentences without stopping to take a breath / breath sounds diminished ABDOMEN: Contour (flat) / there are no masses or lesions / bowel sounds are present / the abdomen is tympanic on percussion, soft & not tender with palpation MSK/EXTREMITIES: range of motion intact in all RASHEEDA and LLE extremities / LOY at RLE limited by pain NEURO: CN 2-12 are grossly intact except hearing in right hear / speech is not dysarthric / strength is 5/5 at RASHEEDA and LLE extremities / he is unable to lift his RLE of the examination bed and reports decreased/dull sensation at the RLE when compared to the LLE PSYCH: alert and oriented to person place and time/ able to understand and follow all commands LABORATORY DATA: 01/30/20 03:18 POC Glucose (Misc Panel) 131H, POC Sodium (Misc Panel) 142, POC Potassium (Misc Panel) 4.4, POC Chloride (Misc Panel) 101, POC Total CO2 (Misc Panel) 21.0L, POC Blood Urea Nitrogen (Misc Panel 15, POC Ionized Calcium (Misc Panel) 4.3L, POC Creatinine (Misc Panel) 1.7H, POC Hematocrit (Misc Panel) 40.0 01/30/20 03:18: Immature Granulocyte % (Auto) 0.6, Neutrophils (%) (Auto) 89.2H, Lymphocytes (%) (Auto) 2.8L, Monocytes (%) (Auto) 7.2H, Eosinophils (%) (Auto) 0.0, Basophils (%) (Auto) 0.2, Neutrophils # (Auto) 18.5H, Lymphocytes # (Auto) 0.6L, Monocytes # (Auto) 1.5H, Eosinophils # (Auto) 0.0, Basophils # (Auto) 0.0, Nucleated Red Blood Cells % (auto) 0.0, Anion Gap 15, Glomerular Filtration Rate 45.7L, Lactic Acid Level 6.9*H, Calcium Level 8.5, Total Bilirubin 1.3H, Direct Bilirubin 0.4H, Aspartate Amino Transf (AST/SGOT) 49H, Alanine Aminotransferase (ALT/SGPT) 40, Alkaline Phosphatase 62, Total Creatine Kinase 351H, Creatine Kinase MB 7.0H, Creatine Kinase MB Relative Index 1.99, Troponin I 0.12H, Total Protein 7.5, Albumin 3.9, Albumin/Globulin Ratio 1.1, Thyroid Stimulating Hormone (TSH) 0.672, Salicylates Level < 1.7L, Acetaminophen Level < 2.0L, Ethyl Alcohol Level < 0.003 01/30/20 04:25: Bedside Glucose (Misc Panel) 113H IMAGING: CT head "IMPRESSION: 1. 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 2. Otherwise negative noncontrast head CT." CT cervical spine "IMPRESSION: Negative CT cervical spine. No fracture or subluxation is evident and no spinal or foraminal stenosis." Chest x-ray "IMPRESSION: Negative lordotic chest with resolution of bilateral pulmonary infiltrates since 09/16/2019." X-ray of the pelvis "IMPRESSION: Negative pelvis." X-ray of the right hip " IMPRESSION: Negative right hip." X-ray of the femur "IMPRESSION: Negative mid and distal right femur." CTA chest "IMPRESSION: 1. Bilateral pulmonary infiltrates, right greater than left which are greatest in the right lower lobe consistent with pneumonia with considerable improvement overall since 01/06/2019. 2. Otherwise negative CTA chest. No pulmonary embolism is identified." CT abdomen and pelvis "IMPRESSION: 1. Right lower lobe pulmonary infiltrates consistent with pneumonia. 2. Duplication of the IVC. 3. Otherwise negative CT abdomen/pelvis." MICROBIOLOGY: 01/30/20 Blood Culture, Received Pending ASSESSMENT: is a 29-year-old with a history of chronic pain, mood disorder, depression , content, altered mental status secondary to hypoxic arrest likely due to drug overdose; be admitted for management of hypotension, KIYA and e valuation of new onset right sided hearing loss and right hip pain with right lower extremity weakness. PLAN: 1. s/p Respiratory arrest followed by cardiac arrest Resolved Was likely 2/2 drug OD ROSC was achieved on the field with CPR & narcan Elevated in troponin supports the premise that he had cardiac arrest 2/2 hypoxia GO-FAR Score = 3-15% survival to discharge I discussed the case with who felt that there was no need to consult him because the patient was not inbutated and doesn't need to undergo hypothermia protocol Plan: admit to ICU / f/u serial trops and Echo 2. Hypotension Possibly due to cardiogenic shock Less likely 2/2 sepsis Plan: IVF / f/u blood cx, trops, VBG and echo / if BP doesn't improve will start pressor (possibly Dobutamine for cardiogenic shock) 3. Aspiration Pneumonitis 2/2 emesis Hypoxia has resolved CTA of the chest and chest xray report infiltrates have improved when compared to previous imaging studies Plan: f/u VBG, since he doesn't have a fever we will hold off ordering Unasyn (for aspiration PNA) / f/u blood cx 4. SIRS He has leukocytosis, tachycardia and lactic acidosis Likely reactive 2/2 arrest. It is to early to definitively determine that this is due to aspiration PNA Plan: monitor vitals/ trend lactic acid /IVF 5. New onset hearing loss Possibly 2/2 infarct related to cardiac arrest CT of the head is unrevealing Plan: pending MRI of the brain will ask the day time team to call Neuro and possibly consult audiology for hearing test (if available) 6. Right hip pain with right leg weakness and paresthesia Not sure if this is also due to some sort of ischemic or embolic event as a result of cardiac arrest Imaging studies of hip, pelvis and right leg are negative so far Plan: bed rest / f/u MRI of the brain / the day time team may consider discussing if additional imaging studies of the back and hip ie MRI are wa rranted with Neuro and or Ortho 7. KIYA Likely prerenal due to arrest Plan: IVF, f/u Ulytes for FENa and renal US 8. Transaminitis Likely 2/2 shock liver vs drug abuse Plan: trend LFTs, f/u liver US, HepB,C and HIV 9. Polysubstance Abuse Plan: fall and seizure precautions / ativan PRN for seizures / hold sedatives / Narcan PRN / f/u drug screen DVT PROPHYLAXIS: Lovenox DISPOSITION: likely home after more than 2 midnight's stay Home Medications Scheduled Gabapentin (Gabapentin) 600 Mg Tab, 600 MG PO TID Pantoprazole Sodium (Pantoprazole Sodium) 20 Mg Tablet.dr, 20 MG PO DAILY Trazodone HCl (Trazodone HCl) 50 Mg Tab, 50 MG PO QHS Scheduled PRN Baclofen (Baclofen) 20 Mg Tab, 20 MG PO QHS PRN for MUSCLE SPASMS Hydrocodone/Acetaminophen (Hydrocodone-Acetamin 5-325 mg) 1 Tab Tab, 1 TAB PO Q6H PRN for PAIN Sildenafil Citrate (Sildenafil Citrate) 100 Mg Tablet, 100 MG PO DAILY PRN for ERECTILE DYSFUNCTION Allergies Coded Allergies: lidocaine (Verified Allergy, Mild, CREAM=RASH, 01/30/20) A-FIB/CHADSVASC A-FIB History Current/History of A-Fib/PAF?: No Current PO Anticoag Therapy: No LWANGA,FATOU MD Jan 30, 2020 05:13
[2020-01-30] MEDS ORDERED: NALOXONE INJ 0.4MG/1ML VIAL (J2310 PER 1MG) IV PRN (05:45)
[2020-01-30] MEDS ORDERED: LORazepam 2 MG/ML VIAL IM PRN (05:45)
--- NOTE | 2020-01-30 06:39 | ECGEPIP ---
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
[2020-01-30 06:54] VITALS: BP 97/61
[2020-01-30] MEDS ORDERED: MORPHINE 4 MG/ML 1ML VIAL/SYRINGE (J2270) IV ONE (07:30)
[2020-01-30] MEDS ORDERED: oxyCODONE 5MG TAB PO ONE (07:30)
[2020-01-30 08:00] VITALS: O2SAT 95
[2020-01-30 08:01] VITALS: BP 102/59
[2020-01-30 08:32] LABS: VENOUS BASE EXCESS -5.6 (-2.0-2.0); VENOUS HCO3 21.1 MEQ/L (23.0-27.0); VENOUS O2 SATURATION 99.4 % (60.0-80.0); VENOUS PARTIAL PRESSURE CO2 46.3 mmHg (38.0-50.0); VENOUS PARTIAL PRESSURE O2 183.5 mmHg (30.0-50.0); VENOUS PH 7.277 UNITS (7.330-7.430); VENOUS STANDARD HCO3 19.9 MEQ/L; VENOUS TOTAL CO2 22.5 MEQ/L (24.0-28.0)
[2020-01-30] MEDS: ENOXAPARIN 40MG/0.4ML SYRINGE (J1650 PER 10MG) SC SCH (08:42)
[2020-01-30 09:11] LABS: BLOOD UREA NITROGEN 15 MG/DL (7-18); CALCIUM LEVEL 7.7 MG/DL (8.5-10.1); CARBON DIOXIDE LEVEL 21 MEQ/L (21-32); CHLORIDE LEVEL 111 MEQ/L (98-107); CREATININE FOR GFR 1.18 MG/DL (0.70-1.30); GLOMERULAR FILTRATION RATE > 60.0 (>60); GLUCOSE, FASTING 132 MG/DL (70-100); POTASSIUM SERUM 4.9 MEQ/L (3.5-5.1); SODIUM LEVEL 140 MEQ/L (136-145)
[2020-01-30 09:17] LABS: FERRITIN 47 NG/ML (26-388); IRON (FE) 25 UG/DL (65-175); MAGNESIUM LEVEL 1.7 MG/DL (1.8-2.4); PERCENT SATURATION 9.9 % (19.7-50.0); TOTAL IRON BINDING CAPACITY 252 UG/DL (250-450)
[2020-01-30] MEDS ORDERED: MAG SULF 1GM/100ML (MAG RUN) 1 GM in IV 1 EA IV ONE (10:00)
[2020-01-30 10:57] LABS: HEPATITIS B SURFACE ANTIBODY POSITIVE (POSITIVE)
[2020-01-30 11:08] LABS: HEPATITIS B SURFACE ANTIGEN NEGATIVE (NEGATIVE)
[2020-01-30 11:36] LABS: HEPATITIS C VIRUS ABY INDEX 0.1 INDEX (<0.8)
[2020-01-30 11:37] LABS: HEPATITIS B CORE ANTIBODY IGM NEGATIVE (NEGATIVE); HIV 1&2 SCREEN CENTAUR NEGATIVE (NEGATIVE)
--- NOTE | 2020-01-30 11:38 | REPVR ---
PROCEDURE INFORMATION: Exam: MR Head Without Contrast Exam date and time: 01/30/2020 11:19 AM Age: 29 years old Clinical indication: Other: New onset right hearing loss and right leg weakness F TECHNIQUE: Imaging protocol: MR of the head without contrast. COMPARISON: MRI-Brain W/O FOLL BY WITH 01/27/2018 6:41 PM FINDINGS: Brain: There is no acute intracranial hemorrhage, cerebral edema, or midline shift. No restricted diffusion is present to suggest acute infarction. 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 Mild increased T2/FLAIR signal is noted in the perihepatic ample regions, slightly more pronounced on the right. This is less pronounced than on the previous exam. Several small foci of increased T2 and FLAIR signal within the periventricular and subcortical white matter are again noted. This is nonspecific but could represent early chronic microangiopathic ischemic changes, the sequela of migraine headaches, or less likely demyelinating disease, prior trauma, or Lyme disease. Clinical correlation is recommended. Cerebral ventricles: Normal. No ventriculomegaly. Bones/joints: Unremarkable. Paranasal sinuses: Normal as visualized. No acute sinusitis. Mastoid air cells: Normal as visualized. No mastoid effusion. Orbits: Unremarkable. Soft tissues: Unremarkable. IMPRESSION: 1. No acute abnormality. 2. Chronic findings as discussed above. Electronically signed by: Ace Phillips On 01/30/2020 11:38:36 AM
[2020-01-30 12:00] VITALS: BP 106/61; O2SAT 97
[2020-01-30 16:00] VITALS: BP 110/63; O2SAT 96
[2020-01-30] MEDS: oxyCODONE 5MG TAB PO PRN (16:05)
[2020-01-30 18:33] LABS: BLOOD UREA NITROGEN 12 MG/DL (7-18); CARBON DIOXIDE LEVEL 27 MEQ/L (21-32); CHLORIDE LEVEL 107 MEQ/L (98-107); CREATININE FOR GFR 0.94 MG/DL (0.70-1.30); GLOMERULAR FILTRATION RATE > 60.0 (>60); GLUCOSE, FASTING 88 MG/DL (70-100); POTASSIUM SERUM 4.1 MEQ/L (3.5-5.1); SODIUM LEVEL 140 MEQ/L (136-145)
[2020-01-30 20:00] VITALS: BP 125/66; O2SAT 97
[2020-01-31] VITALS: BP 131/72; O2SAT 98
[2020-01-31] MEDS: oxyCODONE 5MG TAB PO PRN (00:26)
[2020-01-31 04:00] VITALS: BP 135/86; O2SAT 97
[2020-01-31 04:58] LABS: HEMATOCRIT 33.9 % (42.0-52.0); HEMOGLOBIN 10.7 g/dl (13.5-17.5); MEAN CORPUSCULAR HEMOGLOBIN 27.4 pg (27.0-33.0); MEAN CORPUSCULAR HGB CONC 31.6 g/dl (32.0-36.5); MEAN CORPUSCULAR VOLUME 86.7 fl (80.0-96.0); PLATELET COUNT, AUTOMATED 202 10^3/uL (150-450); RED BLOOD COUNT 3.91 10^6/uL (4.30-6.10); WHITE BLOOD COUNT 8.4 10^3/uL (4.0-10.0)
[2020-01-31 05:45] LABS: ALBUMIN 2.9 GM/DL (3.2-5.2); ALT/SGPT 52 U/L (12-78); BILIRUBIN,TOTAL 0.7 MG/DL (0.2-1.0); BLOOD UREA NITROGEN 10 MG/DL (7-18); CALCIUM LEVEL 7.9 MG/DL (8.5-10.1); CARBON DIOXIDE LEVEL 27 MEQ/L (21-32); CHLORIDE LEVEL 108 MEQ/L (98-107); CPK CREATINE PHOSPHOKINASE 2374 U/L (39-308); CREATININE FOR GFR 0.81 MG/DL (0.70-1.30); GLOMERULAR FILTRATION RATE > 60.0 (>60); GLUCOSE, FASTING 97 MG/DL (70-100); POTASSIUM SERUM 4.1 MEQ/L (3.5-5.1); SODIUM LEVEL 139 MEQ/L (136-145); TOTAL PROTEIN 5.7 GM/DL (6.4-8.2)
[2020-01-31 08:00] VITALS: BP 136/83; O2SAT 98
[2020-01-31] MEDS ORDERED: LEVA750T7 PO ×2 (08:59→09:01)
[2020-01-31] MEDS: ENOXAPARIN 40MG/0.4ML SYRINGE (J1650 PER 10MG) SC SCH (09:00)
--- NOTE | 2020-01-31 11:01 | DS.PDOC ---
Discharge Summary General Date of Admission Jan 30, 2020 at 04:45 Date of Discharge 01/31/20 Discharge Summary DISCHARGE DIAGNOSES Acute metabolic/ Toxic encephalopathy Acute hypoxic respiratory failure due to drug overdose Acute Kidney Injury Unintentional Drug Overdose Community Acquired Pneumonia Incomplete RBBB Right LE pain Chronic Back Pain ETOH Abuse Tobacco Abuse DISCHARGE MEDICATIONS: Please see below. HOSPITAL COURSE: This 29 yr old has a hx of hypoxic arrest after snorting Vicodin and gabapentin in the past, brought in by EMS after found him unresponsive on the floor. CPR was initiated by the , and EMS followed ACLS protocol on arrival with successful narcan administration and resuscitation. Pt was not intubated, but remained hypotensive on arrival in the ER. Work up was positive for pneumonia, and pt was admitted to ICU for telemetry monitoring, started on IV ceftriaxone and doxycycline for Pneumonia. Blood pressure stabilized and did not need vasopressor therapy. He continued to c/o right leg pain better when he takes prn pain meds,and cleared physical therapy. EKG: incomplete RBBB, with no c/o sob, chest pain despite CPR given by . card leo monitored. Pt cleared Physical therapy, and was back to baseline mentation within 12 hrs of admission. He was encouraged to seek professional help for his polysubstance abuse. DISCHARGE PHYSICAL EXAMINATION: VITALS: SEE BELOW HEENT: NCAT ANICTERIC no jaundice. no conversational dyspnea CVS: RRR/NMRG/ no lower extremity edema LUNGS: bibasilar fine crackles. CTAB in upper lobes no wheezing or rhonchi ABDOMEN: (+) bs no HSm soft & not tender with palpation MSK/EXTREMITIES: (-)CCE b/l LE. right leg flexion extension limited due to pain. LABORATORY DATA: see below IMAGING STUDIES: CT head "IMPRESSION: 1. 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 2. Otherwise negative noncontrast head CT." CT cervical spine "IMPRESSION: Negative CT cervical spine. No fracture or subluxation is evident and no spinal or foraminal stenosis." Chest x-ray "IMPRESSION: Negative lordotic chest with resolution of bilateral pulmonary infiltrates since 09/16/2019." X-ray of the pelvis "IMPRESSION: Negative pelvis." X-ray of the right hip " IMPRESSION: Negative right hip." X-ray of the femur "IMPRESSION: Negative mid and distal right femur." CTA chest "IMPRESSION: 1. Bilateral pulmonary infiltrates, right greater than left which are greatest in the right lower lobe consistent with pneumonia with considerable improvement overall since 01/06/2019. 2. Otherwise negative CTA chest. No pulmonary embolism is identified." CT abdomen and pelvis "IMPRESSION: 1. Right lower lobe pulmonary infiltrates consistent with pneumonia. 2. Duplication of the IVC. 3. Otherwise negative CT abdomen/pelvis." MRI-Brain W/O FOLL BY WITH 01/27/2018 6:41 PM FINDINGS: Brain: There is no acute intracranial hemorrhage, cerebral edema, or midline shift. No restricted diffusion is present to suggest acute infarction. 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 Mild increased T2/FLAIR signal is noted in the perihepatic ample regions, slightly more pronounced on the right. This is less pronounced than on the previous exam. Several small foci of increased T2 and FLAIR signal within the periventricular and subcortical white matter are again noted. This is nonspecific but could represent early chronic microangiopathic ischemic changes, the sequela of migraine headaches, or less likely demyelinating disease, prior trauma, or Lyme disease. Clinical correlation is recommended. Cerebral ventricles: Normal. No ventriculomegaly. Bones/joints: Unremarkable. Paranasal sinuses: Normal as visualized. No acute sinusitis. Mastoid air cells: Normal as visualized. No mastoid effusion. Orbits: Unremarkable. Soft tissues: Unremarkable. IMPRESSION: 1. No acute abnormality. 2. Chronic findings as discussed above. Electronically signed by: Ace Morrison On 01/30/2020 11:38:36 AM DD: ACE MORRISON MD, MD 01/30/20 1119 DT: JOHN 01/30/20 1138 DS: AMAN 01/30/20 1138 PROCEDURE INFORMATION: Exam: XR Right Femur Exam date and time: 01/30/2020 3:38 AM Age: 29 years old Clinical indication: Pain; Hip; Right; Additional info: Right hip pain TECHNIQUE: Imaging protocol: XR Right femur. Views: 2 views. COMPARISON: No relevant prior studies available. FINDINGS: Bones/joints: The proximal right femur is not included. No fractures in the mid and distal femur. Soft tissues: Unremarkable. IMPRESSION: Negative mid and distal right femur. Exam: CT Cervical Spine Without Contrast Exam date and time: 01/30/2020 3:09 AM Age: 29 years old Clinical indication: Neck pain; Additional info: Cpr, SOB TECHNIQUE: Imaging protocol: Computed tomography images of the cervical spine without contrast. Radiation optimization: All CT scans at this facility use at least one of these dose optimization techniques: automated exposure control; mA and/or kV adjustment per patient size (includes targeted exams where dose is matched to clinical indication); or iterative reconstruction. COMPARISON: No relevant prior studies available. FINDINGS: Vertebrae: No acute fracture. Normal alignment. Discs/Spinal canal/Neural foramina: No significant disc protrusion. No severe spinal canal stenosis. No significant neural foraminal narrowing. Soft tissues: Unremarkable. Lungs: Lung apices are normal. IMPRESSION: Negative CT cervical spine. No fracture or subluxation is evident and no spinal or foraminal stenosis. Electronically signed by: Prashanth Santana On 01/30/2020 04:03:45 AM MICROBIOLOGY: 01/30/20 Blood Culture,neg TIME SPENT ON DISCHARGE: 30 MIN Vital Signs/I&Os Vital Signs Date Time Temp Pulse Resp B/P (MAP) Pulse Ox O2 Delivery O2 Flow Rate FiO2 01/31/20 08:00 98.3 79 18 136/83 (100) 98 Room Air 01/30/20 16:00 0.0 I&O- Last 24 Hours up to 6 AM 01/31/20 06:00 Intake Total 2705 ml Output Total 1225 ml Balance 1480 ml Laboratory Data Labs 24H Laboratory Tests 2 01/30/20 17:53: Anion Gap 6L, Glomerular Filtration Rate > 60.0, Lactic Acid Level 1.9, Calcium Level 8.0L 01/31/20 04:48: Anion Gap 4L, Glomerular Filtration Rate > 60.0, Calcium Level 7.9L, Nucleated Red Blood Cells % (auto) 0.0, Total Bilirubin 0.7, Aspartate Amino Transf (AST/SGOT) 111H, Alanine Aminotransferase (ALT/SGPT) 52, Alkaline Phosphatase 45, Total Creatine Kinase 2374#H, Total Protein 5.7#L, Albumin 2.9#L, Albumin/Globulin Ratio 1.0 CBC/BMP Laboratory Tests 01/30/20 17:53 01/31/20 04:48 Microbiology Microbiology 01/30/20 Blood Culture - Preliminary, Resulted No growth after 24 hours . All specim... 01/30/20 Blood Culture - Preliminary, Resulted No growth after 24 hours . All specim... Discharge Medications Scheduled Gabapentin (Gabapentin) 600 Mg Tab, 600 MG PO TID, (Reported) Levofloxacin (Levaquin) 750 Mg Tablet, 750 MG PO DAILY Pantoprazole Sodium (Pantoprazole Sodium) 20 Mg Tablet.dr, 20 MG PO DAILY, (Reported) Trazodone HCl (Trazodone HCl) 50 Mg Tab, 50 MG PO QHS, (Reported) Scheduled PRN Baclofen (Baclofen) 20 Mg Tab, 20 MG PO QHS PRN for MUSCLE SPASMS, (Reported) Hydrocodone/Acetaminophen (Hydrocodone-Acetamin 5-325 mg) 1 Tab Tab, 1 TAB PO Q6H PRN for PAIN, (Reported) Sildenafil Citrate (Sildenafil Citrate) 100 Mg Tablet, 100 MG PO DAILY PRN for ERECTILE DYSFUNCTION, (Reported) Allergies Coded Allergies: lidocaine (Verified Allergy, Mild, CREAM=RASH, 01/30/20) DOLLY PALACIOS MD Jan 31, 2020 10:51
--- NOTE | 2020-02-04 06:58 | ECHO ---
DATE OF PROCEDURE: 01/30/2020 Height: 183 cm Weight: 88 kg. REFERRING PHYSICIAN: Marylou Beck INDICATION: Status post cardiac arrest, drug overdose. MEASUREMENTS: IVS 1.0 LV 5.0 LVPW is 0.9 LA 3.0 Aorta 2.9 RV 4.2 IVC 2.7 Mitral E wave velocity 57, A wave 38 E prime septal 7.0 E prime lateral 11.0 FINDINGS: The study is of good technical quality. The patient is in sinus rhythm. Left ventricle is normal size. There appears to be mild global hypokinesis and essentially akinesis of the apex. Overall left ventricular ejection fraction (LVEF) estimated around 40%. Right ventricle also appears mildly hypokinetic and mildly enlarged. Both atria appear normal. All four cardiac valves are easily well seen and appear normal. No pericardial effusion is noted. Inferior vena cava is markedly dilated and there is no appreciable collapse with inspiration indicative of elevated central venous pressure. Aortic root, aortic arch and visualized segmental abdominal aorta appear normal. Doppler interrogation reveals competent aortic valve. There is trace mild and tricuspid insufficiency. Calculated artery pressure is in the minimum in the high 30s corresponding to mild pulmonary hypertension. Pulmonic valve is functionally competent. Mitral inflow pattern and tissue Doppler imaging of mitral annulus reveal probably normal diastolic function even though tissue Doppler velocity of mitral annulus is mildly reduced. I cannot rule out that this actually represents grade 2 diastolic dysfunction. CONCLUSIONS: 1. Study is of good technical quality, the patient is in sinus rhythm. 2. Normal LV size with mild global hypokinesis, apical also almost akinesis and overall estimated left ventricular ejection fraction (LVEF) 40%. Uncertain about diastolic function. 3. No significant valvular disease. 4. High central venous pressure and at least mild pulmonary hypertension. MTDD
== END 2020-01-31 10:08 | disposition home or self-care (01) | DRG 917 ==
LOC: M ED 02:48 → M ED INP 04:45 → ENRESERV 05:18 → M ICU 06:49
PROVIDERS: ADMIT Internal Medicine; ATTEND General Practice
DX: T50.901A Poisoning by unspecified drugs, medicaments and biological substances, accidental (unintentional), initial encounter (principal); R57.0 Cardiogenic shock; J18.9 Pneumonia, unspecified organism; G92 Toxic encephalopathy; J96.01 Acute respiratory failure with hypoxia; I46.9 Cardiac arrest, cause unspecified; K72.00 Acute and subacute hepatic failure without coma; N17.9 Acute kidney failure, unspecified; E87.2 Acidosis; H91.91 Unspecified hearing loss, right ear; F10.10 Alcohol abuse, uncomplicated; G89.29 Other chronic pain; F32.9 Major depressive disorder, single episode, unspecified; F17.220 Nicotine dependence, chewing tobacco, uncomplicated; M25.551 Pain in right hip; R20.0 Anesthesia of skin; M62.81 Muscle weakness (generalized); Z79.899 Other long term (current) drug therapy; Z88.4 Allergy status to anesthetic agent